=== PATIENT | male | born 1965 | race Caucasian/White ===

== ENCOUNTER 2016-05-02 07:48 | Emergency (ER) | payer OTHER ==
--- NOTE | 2016-05-02 09:27 | REP ---
CT abdomen and pelvis without contrast 05/02/2016 Indication: Right renal colic Comparison: CT abdomen pelvis 10/27/2015, renal ultrasound 12/02/2015 Findings: small amount of dependent atelectasis is present in lung bases bilaterally. There is a 9 mm calcified granuloma within the lingula, and a 2 mm calcified granuloma in the lateral basilar segment left lower lobe. Liver is unremarkable. There are multiple scattered calcified granulomata in the spleen and one small calcified granuloma in the posterior segment right lobe of liver. The pancreas, gallbladder, adrenal glands are normal. There is very minimal dilatation of the right ureter secondary to an obstructing 2.8 mm calculus the distal right ureter approximately 5 mm above right ureteral vesicle junction. There is minimal right lonnie ureteral stranding. Left kidney is without hydronephrosis. There are no Nephro calculi bilaterally. Stomach and small bowel are within normal limits. The terminal ileum is normal. Appendix is without inflammation. Abdominal aorta is of normal course and caliber. Bladder is contracted; prostate is not enlarged. There are a few scattered colonic diverticula. There is no free air or ascites. Impression: 1. Minimal right hydronephrosis and hydroureter secondary to a 2.8 mm minimally obstructing calculus within the distal right ureter, approximately 5 mm above ureterovesical junction. Minimal right periureteral stranding 2. Appendix without inflammation. 3. Old granulomatous disease Signed by Elisa Montiel MD 05/02/2016 09:19 A
--- NOTE | 2016-05-02 10:13 | EDDOCDS ---
Physician Documentation [facility] Name: Marlo Root Age: 51 yrs Sex: Male : 1965 Arrival Date: 05/02/2016 Time: 07:48 Bed 5 Private MD: Disposition: 05/02 09:30 Critical Care: Critical care not applicable. pc Disposition: 05/02/16 09:40 Discharged to Home/Self Care. Impression: Calculus of ureter - right, distal, 2.8mm. - Condition is Stable. - Discharge Instructions: Kidney Stones, Ureteral Colic. - Prescriptions for Percocet 5- 325 mg Oral Tablet - take 1 tablet by ORAL route every 6 hours As needed MDD: 4 tabs; 20 tablet. ZOFRAN ODT 4 mg - dissolve 1 tablet by ORAL route 4 times per day As needed do not chew, do not swallow whole; 10 tablet. - Medication Reconciliation, Local Pharmacy Hours form. - Follow up: Bogdan Palafox; When: Call to arrange an appointment; Reason: To establish care. - Problem is new. - Symptoms have improved. HPI: 09:02 This 51 yrs old Male presents to ER via Walkin/Carried/Asstd with complaints pc of Flank Pain. 09:02 The history is obtained from the patient. pc 09:30 The patient presents with right flank pain. The symptoms began suddenly at 05:30, and pc improved just prior to arrival. Symptoms have resolved. They lasted for. At its worst, the symptoms were a 10 out of 10. In the emergency department, the symptoms has resolved. The is primarily located posterior aspect of right lateral abdomen. It does not radiate. The pain was associated with nausea, diaphoresis. The patient has experienced similar episodes in the past, several times. The patient has not recently seen a physician. Historical: - Allergies: no known allergies; - Home Meds: 1. Hydrocodone-Acetaminophen Oral Unknown as needed (Last dose: 05/02/2016 06:00) 2. Tylenol 325 mg Oral tab 2 tabs as needed (Last dose: 04/30/2016) - PMHx: Kidney stones; - PSHx: none; - The history from nurses notes was reviewed: and I agree with what is documented. - Social history: Smoking status: Patient states former smoker of tobacco. No barriers to communication noted, The patient speaks fluent Chinese. - Family history: Not pertinent. - : The pt / caregiver states he / she is not on anticoagulants. Home medication list is obtained from the patient. - Hospitalizations: : No recent hospitalization is reported. - Exposure Risk Screening:: None identified. - Immunization history:: All immunizations up-to-date. - Social history:: the patient is a non-smoker, the patient drinks alcohol, socially. ROS: 09:30 All systems are negative except if listed. The constitutional, cardiovascular, pc respiratory and neurological components are also addressed in the HPI. Exam: 09:30 General Appearance: alert, no acute distress. pc 09:30 ENT: ear, nose and throat normal, pharynx normal. 09:30 Neck: The exam reveals no acute abnormalities. ROM is normal and painless. No nuchal rigidity is noted.. 09:30 Respiratory: no respiratory distress, normal breath sounds, chest non-tender. 09:30 Cardiovascular: regular pulse rate, regular heart rhythm, normal heart sounds, equal and full pulses bilaterally. 09:30 Abdomen: soft, non-tender, no organomegaly, normal bowel sounds. 09:30 Back: CVA tenderness is noted on the right. 09:30 Skin: skin color is normal, warm, dry. 09:30 Extremities: The extremities have a grossly normal appearance, are non-tender, without acute ROM abnormalities. 09:30 Neuro: oriented x 3, cranial nerves normal as tested, no motor deficits, no sensory deficits. 09:30 Psych: mood is normal. Vital Signs: 07:57 BP 122 / 68; Pulse 44; Resp 16; Temp 96.3(T); Pulse Ox 98% on R/A; Weight 69.4 kg / 153 dwg lbs; Height 5 ft. 9 in. (175.26 cm); Pain 10/10; 10:07 BP 108 / 64; Pulse 48; Resp 18; Temp 97.6(O); Pulse Ox 99% on R/A; Pain 0/10; ct3 07:57 Body Mass Index 22.59 (69.40 kg, 175.26 cm) dwg MDM: 08:50 CT ABD & PELVIS: No Contrast Ordered. EDMS 08:56 Financial registration complete. lg 09:30 Differential diagnosis: Pyelonephritis, Ureterolithiasis. Plan: CT. Data reviewed: old medical records, vital signs, nurses notes, all radiology studies and available results. Test interpretation: interpreted by Radiologist and personally reviewed, Abdomen/Pelvis CT; right distal ureteral stone, 2.8mm, with mild HU/HN. The patient has been re-examined and re-evaluated. The clinical presentation did not require any ED treatment or interventions. Disposition: The historical points, examination findings, and any diagnostic results supporting the provided diagnosis, were discussed with the patient or legal guardian. The need for outpatient follow up with the provider listed on their discharge instructions was discussed. They were encouraged to return to [facility], or the nearest ED, if symptoms worsen/persist, or for any other questions/concerns. 09:49 [facility] Payment Agreement was scanned into [employer] and attached to record. lg Signatures: Dispatcher [employer] EDMS Jah Jewell MD MD pc Greene, Daniel, RN RN Jaxson Torres, Ann Johnson lg RN RN mk4 The chart was reviewed and I authenticate all verbal orders and agree with the evaluation and treatment provided.Attachments: 09:49 [facility] Payment Agreement lg [email or web address]
--- NOTE | 2016-05-02 10:13 | EDDOCDS ---
Nurse's Notes [facility] Name: Marlo Root Age: 51 yrs Sex: Male : 1965 Arrival Date: 05/02/2016 Time: 07:48 Bed 5 Private MD: Diagnosis: Calculus of ureter-right, distal, 2.8mm Presentation: 05/02 07:54 Presenting complaint: Patient states: Right flank pain since 5am today. Vomited once, dwg history of kidney stones. Acute neurological deficits are not present. Mechanism of Injury: No Mechanism of Injury. Adult Sepsis Screening: The patient does not have new or worsening altered mentation. Patient's respiratory rate is less than 22. Systolic blood pressure is greater than 100. Patient has a qSOFA score of 0- Negative Sepsis Screen. Suicide/Homicide risk assessment- the patient denies having any suicidal and/or homicidal ideations and does not present with any other emotional, behavioral or mental health complaints. Status: Patient is not a vp client services or dependent. Transition of care: patient was not received from another setting of care. 07:54 Acuity: PIERCE Level 3 dwg 07:54 Method Of Arrival: Walkin/Carried/Asstd dwg Triage Assessment: 07:57 General: Appears in no apparent distress. Pain: Pain currently is 10 out of 10 on a dwg pain scale. HIV screening NA for this visit Offered previously. Historical: - Allergies: no known allergies; - Home Meds: 1. Hydrocodone-Acetaminophen Oral Unknown as needed (Last dose: 05/02/2016 06:00) 2. Tylenol 325 mg Oral tab 2 tabs as needed (Last dose: 04/30/2016) - PMHx: Kidney stones; - PSHx: none; - The history from nurses notes was reviewed: and I agree with what is documented. - Social history: Smoking status: Patient states former smoker of tobacco. No barriers to communication noted, The patient speaks fluent Malay. - Family history: Not pertinent. - : The pt / caregiver states he / she is not on anticoagulants. Home medication list is obtained from the patient. - Hospitalizations: : No recent hospitalization is reported. - Exposure Risk Screening:: None identified. - Immunization history:: All immunizations up-to-date. - Social history:: the patient is a non-smoker, the patient drinks alcohol, socially. Screenin:10 Screening information is obtained from the patient. Fall risk: No risks identified. mk4 Assistance ADL's: requires no assistance with activities of daily living. Abuse/DV Screen: The patient / caregiver reports he/she is: not in a situation that causes fear, pain or injury. Nutritional screening: No deficits noted. Advance Directives: Currently, there is no health care proxy. home support is adequate. Assessment: 08:10 Pain: Denies pain. Neurological: Level of Consciousness is awake, alert. Respiratory: mk4 Airway is patent Respiratory effort is even, unlabored, Respiratory pattern is regular. GI: Abdomen is flat, non- distended Bowel sounds present X 4 quads. Abd is soft and non tender X 4 quads. Musculoskeletal: No deficits noted. 08:50 General: Appears in no apparent distress, comfortable. mk4 08:53 Adult Sepsis Screening: The patient does not have new or worsening altered mentation. mk4 Patient's respiratory rate is less than 22. Systolic blood pressure is greater than 100. Patient has a qSOFA score of 0- Negative Sepsis Screen. 09:26 Reassessment: Patient denies pain at this time. Patient states feeling better. Patient mk4 states symptoms have improved. 10:10 Reassessment: Patient denies pain at this time. Patient states feeling better. General: mk4 Appears in no apparent distress, comfortable. Vital Signs: 07:57 BP 122 / 68; Pulse 44; Resp 16; Temp 96.3(T); Pulse Ox 98% on R/A; Weight 69.4 kg; g Height 5 ft. 9 in. (175.26 cm); Pain 10/10; 10:07 BP 108 / 64; Pulse 48; Resp 18; Temp 97.6(O); Pulse Ox 99% on R/A; Pain 0/10; ct3 07:57 Body Mass Index 22.59 (69.40 kg, 175.26 cm) [facility] Vitals: 07:57 Log In Time: May 02, 2016 at 07:47. [facility] ED Course: 07:49 Patient visited by Marcelina Jaquez. mm15 07:49 Patient moved to Waiting mm15 07:55 Triage Initiated [facility] 08:00 Patient moved to [facility] 08:44 Jah Jewell MD is Attending Physician. pc 08:49 Patient visited by Jah Jewell MD. pc 08:52 Inserted saline lock: 18 gauge in left antecubital area and blood collected. No mk4 procedures done that require assistance. 09:26 Patient visited by Ann Levine RN. mk4 09:35 CT ABD & PELVIS: No Contrast Returned. EDMS 09:40 Bogdan Palafox is Referral Physician. pc 09:49 [facility] Payment Agreement was scanned into [employer] and attached to record. lg 10:07 Patient visited by Nivia Quiroz PCA. ct3 10:10 The patient / caregiver is instructed regarding the plan of care and ED course. mk4 10:10 Discontinued IV lock bleeding controlled, pressure dressing applied. mk4 Order Results: Radiology Order: CT ABD & PELVIS: No Contrast Test: CT ABD & PELVIS: No Contrast REASON FOR EXAMINATION: Renal colic; CT abdomen and pelvis without contrast 05/02/2016; ; Indication: Right renal colic; ; Comparison: CT abdomen pelvis 10/27/2015, renal ultrasound 12/02/2015; ; Findings: small amount of dependent atelectasis is present in lung bases; bilaterally. There is a 9 mm calcified granuloma within the lingula, and a 2 mm; calcified granuloma in the lateral basilar segment left lower lobe.; ; Liver is unremarkable. There are multiple scattered calcified granulomata in the; spleen and one small calcified granuloma in the posterior segment right lobe of; liver. The pancreas, gallbladder, adrenal glands are normal. There is very; minimal dilatation of the right ureter secondary to an obstructing 2.8 mm; calculus the distal right ureter approximately 5 mm above right ureteral vesicle; junction. There is minimal right lonnie ureteral stranding. Left kidney is without; hydronephrosis. There are no Nephro calculi bilaterally. Stomach and small; bowel are within normal limits. The terminal ileum is normal. Appendix is; without inflammation. Abdominal aorta is of normal course and caliber.; ; Bladder is contracted; prostate is not enlarged. There are a few scattered; colonic diverticula. There is no free air or ascites.; ; Impression:; 1. Minimal right hydronephrosis and hydroureter secondary to a 2.8 mm minimally; obstructing calculus within the distal right ureter, approximately 5 mm above; ureterovesical junction. Minimal right periureteral stranding; 2. Appendix without inflammation.; 3. Old granulomatous disease; ; ; Signed by; Elisa Montiel MD 05/02/2016 09:19 A; Outcome: 09:40 Discharge ordered by Provider. pc 10:10 Discharge Assessment: Patient awake, alert and oriented x 3. No cognitive and/or mk4 functional deficits noted. Patient verbalized understanding of disposition instructions. Patient awake and alert. patient administered narcotics - no. The following High Risk Discharge criteria are identified: None. Discharged to home ambulatory. Condition: good Condition: stable. CT Study completed. Property sent home with patient. 10:12 Patient left the ED. mk4 Signatures: Dispatcher [employer] EDMS Jah Jewell MD MD pc Greene, Daniel, RN RN Jaxson Torres Reg Reg lg Taveras, Consuelo, PRODUCTION COOK PRODUCTION COOK ct3 Marcelina Jaquez mm15 Ann Levine, RN RN mk4 MTDD
--- NOTE | 2016-05-04 11:13 | EDDOCDS ---
Physician Documentation [facility] Name: Marlo Root Age: 51 yrs Sex: Male : 1965 Arrival Date: 05/02/2016 Time: 07:48 Bed 5 Private MD: Disposition: 05/02 09:30 Critical Care: Critical care not applicable. pc Disposition: 05/02/16 09:40 Discharged to Home/Self Care. Impression: Calculus of ureter - right, distal, 2.8mm. - Condition is Stable. - Discharge Instructions: Kidney Stones, Ureteral Colic. - Prescriptions for Percocet 5- 325 mg Oral Tablet - take 1 tablet by ORAL route every 6 hours As needed MDD: 4 tabs; 20 tablet. ZOFRAN ODT 4 mg - dissolve 1 tablet by ORAL route 4 times per day As needed do not chew, do not swallow whole; 10 tablet. - Medication Reconciliation, Local Pharmacy Hours form. - Follow up: Bogdan Palafox; When: Call to arrange an appointment; Reason: To establish care. - Problem is new. - Symptoms have improved. HPI: 09:02 This 51 yrs old Male presents to ER via Walkin/Carried/Asstd with complaints pc of Flank Pain. 09:02 The history is obtained from the patient. pc 09:30 The patient presents with right flank pain. The symptoms began suddenly at 05:30, and pc improved just prior to arrival. Symptoms have resolved. They lasted for. At its worst, the symptoms were a 10 out of 10. In the emergency department, the symptoms has resolved. The is primarily located posterior aspect of right lateral abdomen. It does not radiate. The pain was associated with nausea, diaphoresis. The patient has experienced similar episodes in the past, several times. The patient has not recently seen a physician. Historical: - Allergies: no known allergies; - Home Meds: 1. Hydrocodone-Acetaminophen Oral Unknown as needed (Last dose: 05/02/2016 06:00) 2. Tylenol 325 mg Oral tab 2 tabs as needed (Last dose: 04/30/2016) - PMHx: Kidney stones; - PSHx: none; - The history from nurses notes was reviewed: and I agree with what is documented. - Social history: Smoking status: Patient states former smoker of tobacco. No barriers to communication noted, The patient speaks fluent Nigerien. - Family history: Not pertinent. - : The pt / caregiver states he / she is not on anticoagulants. Home medication list is obtained from the patient. - Hospitalizations: : No recent hospitalization is reported. - Exposure Risk Screening:: None identified. - Immunization history:: All immunizations up-to-date. - Social history:: the patient is a non-smoker, the patient drinks alcohol, socially. ROS: 09:30 All systems are negative except if listed. The constitutional, cardiovascular, pc respiratory and neurological components are also addressed in the HPI. Exam: 09:30 General Appearance: alert, no acute distress. pc 09:30 ENT: ear, nose and throat normal, pharynx normal. 09:30 Neck: The exam reveals no acute abnormalities. ROM is normal and painless. No nuchal rigidity is noted.. 09:30 Respiratory: no respiratory distress, normal breath sounds, chest non-tender. 09:30 Cardiovascular: regular pulse rate, regular heart rhythm, normal heart sounds, equal and full pulses bilaterally. 09:30 Abdomen: soft, non-tender, no organomegaly, normal bowel sounds. 09:30 Back: CVA tenderness is noted on the right. 09:30 Skin: skin color is normal, warm, dry. 09:30 Extremities: The extremities have a grossly normal appearance, are non-tender, without acute ROM abnormalities. 09:30 Neuro: oriented x 3, cranial nerves normal as tested, no motor deficits, no sensory deficits. 09:30 Psych: mood is normal. Vital Signs: 07:57 BP 122 / 68; Pulse 44; Resp 16; Temp 96.3(T); Pulse Ox 98% on R/A; Weight 69.4 kg / 153 dwg lbs; Height 5 ft. 9 in. (175.26 cm); Pain 10/10; 10:07 BP 108 / 64; Pulse 48; Resp 18; Temp 97.6(O); Pulse Ox 99% on R/A; Pain 0/10; ct3 07:57 Body Mass Index 22.59 (69.40 kg, 175.26 cm) dwg MDM: 08:50 CT ABD & PELVIS: No Contrast Ordered. EDMS 08:56 Financial registration complete. lg 09:30 Differential diagnosis: Pyelonephritis, Ureterolithiasis. Plan: CT. Data reviewed: old medical records, vital signs, nurses notes, all radiology studies and available results. Test interpretation: interpreted by Radiologist and personally reviewed, Abdomen/Pelvis CT; right distal ureteral stone, 2.8mm, with mild HU/HN. The patient has been re-examined and re-evaluated. The clinical presentation did not require any ED treatment or interventions. Disposition: The historical points, examination findings, and any diagnostic results supporting the provided diagnosis, were discussed with the patient or legal guardian. The need for outpatient follow up with the provider listed on their discharge instructions was discussed. They were encouraged to return to [facility], or the nearest ED, if symptoms worsen/persist, or for any other questions/concerns. 09:49 [facility] Payment Agreement was scanned into [employer] and attached to record. lg Signatures: Dispatcher [employer] EDMS Jah Jewell MD MD pc Greene, Daniel, RN RN Jaxson Torres, Ann Johnson lg RN RN mk4 The chart was reviewed and I authenticate all verbal orders and agree with the evaluation and treatment provided.Attachments: 09:49 [facility] Payment Agreement lg Chart Complete MTDD
--- NOTE | 2016-05-04 11:13 | EDDOCDS ---
Physician Documentation [facility] Name: Marlo Root Age: 51 yrs Sex: Male : 1965 Arrival Date: 05/02/2016 Time: 07:48 Bed 5 Private MD: Disposition: 05/02 09:30 Critical Care: Critical care not applicable. pc Disposition: 05/02/16 09:40 Discharged to Home/Self Care. Impression: Calculus of ureter - right, distal, 2.8mm. - Condition is Stable. - Discharge Instructions: Kidney Stones, Ureteral Colic. - Prescriptions for Percocet 5- 325 mg Oral Tablet - take 1 tablet by ORAL route every 6 hours As needed MDD: 4 tabs; 20 tablet. ZOFRAN ODT 4 mg - dissolve 1 tablet by ORAL route 4 times per day As needed do not chew, do not swallow whole; 10 tablet. - Medication Reconciliation, Local Pharmacy Hours form. - Follow up: Bogdan Palafox; When: Call to arrange an appointment; Reason: To establish care. - Problem is new. - Symptoms have improved. HPI: 09:02 This 51 yrs old Male presents to ER via Walkin/Carried/Asstd with complaints pc of Flank Pain. 09:02 The history is obtained from the patient. pc 09:30 The patient presents with right flank pain. The symptoms began suddenly at 05:30, and pc improved just prior to arrival. Symptoms have resolved. They lasted for. At its worst, the symptoms were a 10 out of 10. In the emergency department, the symptoms has resolved. The is primarily located posterior aspect of right lateral abdomen. It does not radiate. The pain was associated with nausea, diaphoresis. The patient has experienced similar episodes in the past, several times. The patient has not recently seen a physician. Historical: - Allergies: no known allergies; - Home Meds: 1. Hydrocodone-Acetaminophen Oral Unknown as needed (Last dose: 05/02/2016 06:00) 2. Tylenol 325 mg Oral tab 2 tabs as needed (Last dose: 04/30/2016) - PMHx: Kidney stones; - PSHx: none; - The history from nurses notes was reviewed: and I agree with what is documented. - Social history: Smoking status: Patient states former smoker of tobacco. No barriers to communication noted, The patient speaks fluent Kyrgyz. - Family history: Not pertinent. - : The pt / caregiver states he / she is not on anticoagulants. Home medication list is obtained from the patient. - Hospitalizations: : No recent hospitalization is reported. - Exposure Risk Screening:: None identified. - Immunization history:: All immunizations up-to-date. - Social history:: the patient is a non-smoker, the patient drinks alcohol, socially. ROS: 09:30 All systems are negative except if listed. The constitutional, cardiovascular, pc respiratory and neurological components are also addressed in the HPI. Exam: 09:30 General Appearance: alert, no acute distress. pc 09:30 ENT: ear, nose and throat normal, pharynx normal. 09:30 Neck: The exam reveals no acute abnormalities. ROM is normal and painless. No nuchal rigidity is noted.. 09:30 Respiratory: no respiratory distress, normal breath sounds, chest non-tender. 09:30 Cardiovascular: regular pulse rate, regular heart rhythm, normal heart sounds, equal and full pulses bilaterally. 09:30 Abdomen: soft, non-tender, no organomegaly, normal bowel sounds. 09:30 Back: CVA tenderness is noted on the right. 09:30 Skin: skin color is normal, warm, dry. 09:30 Extremities: The extremities have a grossly normal appearance, are non-tender, without acute ROM abnormalities. 09:30 Neuro: oriented x 3, cranial nerves normal as tested, no motor deficits, no sensory deficits. 09:30 Psych: mood is normal. Vital Signs: 07:57 BP 122 / 68; Pulse 44; Resp 16; Temp 96.3(T); Pulse Ox 98% on R/A; Weight 69.4 kg / 153 dwg lbs; Height 5 ft. 9 in. (175.26 cm); Pain 10/10; 10:07 BP 108 / 64; Pulse 48; Resp 18; Temp 97.6(O); Pulse Ox 99% on R/A; Pain 0/10; ct3 07:57 Body Mass Index 22.59 (69.40 kg, 175.26 cm) dwg MDM: 08:50 CT ABD & PELVIS: No Contrast Ordered. EDMS 08:56 Financial registration complete. lg 09:30 Differential diagnosis: Pyelonephritis, Ureterolithiasis. Plan: CT. Data reviewed: old medical records, vital signs, nurses notes, all radiology studies and available results. Test interpretation: interpreted by Radiologist and personally reviewed, Abdomen/Pelvis CT; right distal ureteral stone, 2.8mm, with mild HU/HN. The patient has been re-examined and re-evaluated. The clinical presentation did not require any ED treatment or interventions. Disposition: The historical points, examination findings, and any diagnostic results supporting the provided diagnosis, were discussed with the patient or legal guardian. The need for outpatient follow up with the provider listed on their discharge instructions was discussed. They were encouraged to return to [facility], or the nearest ED, if symptoms worsen/persist, or for any other questions/concerns. 09:49 [facility] Payment Agreement was scanned into [employer] and attached to record. lg Signatures: Dispatcher [employer] EDMS Jah Jewell MD MD pc Greene, Daniel, RN RN Jaxson Torres, Ann Johnson lg RN RN mk4 The chart was reviewed and I authenticate all verbal orders and agree with the evaluation and treatment provided.Attachments: 09:49 [facility] Payment Agreement lg Chart Complete MTDD
--- NOTE | 2016-05-04 11:13 | EDDOCDS ---
Nurse's Notes [facility] Name: Marlo Root Age: 51 yrs Sex: Male : 1965 Arrival Date: 05/02/2016 Time: 07:48 Bed 5 Private MD: Diagnosis: Calculus of ureter-right, distal, 2.8mm Presentation: 05/02 07:54 Presenting complaint: Patient states: Right flank pain since 5am today. Vomited once, dwg history of kidney stones. Acute neurological deficits are not present. Mechanism of Injury: No Mechanism of Injury. Adult Sepsis Screening: The patient does not have new or worsening altered mentation. Patient's respiratory rate is less than 22. Systolic blood pressure is greater than 100. Patient has a qSOFA score of 0- Negative Sepsis Screen. Suicide/Homicide risk assessment- the patient denies having any suicidal and/or homicidal ideations and does not present with any other emotional, behavioral or mental health complaints. Status: Patient is not a financial service representative or dependent. Transition of care: patient was not received from another setting of care. 07:54 Acuity: PIERCE Level 3 dwg 07:54 Method Of Arrival: Walkin/Carried/Asstd dwg Triage Assessment: 07:57 General: Appears in no apparent distress. Pain: Pain currently is 10 out of 10 on a dwg pain scale. HIV screening NA for this visit Offered previously. Historical: - Allergies: no known allergies; - Home Meds: 1. Hydrocodone-Acetaminophen Oral Unknown as needed (Last dose: 05/02/2016 06:00) 2. Tylenol 325 mg Oral tab 2 tabs as needed (Last dose: 04/30/2016) - PMHx: Kidney stones; - PSHx: none; - The history from nurses notes was reviewed: and I agree with what is documented. - Social history: Smoking status: Patient states former smoker of tobacco. No barriers to communication noted, The patient speaks fluent Wolof. - Family history: Not pertinent. - : The pt / caregiver states he / she is not on anticoagulants. Home medication list is obtained from the patient. - Hospitalizations: : No recent hospitalization is reported. - Exposure Risk Screening:: None identified. - Immunization history:: All immunizations up-to-date. - Social history:: the patient is a non-smoker, the patient drinks alcohol, socially. Screenin:10 Screening information is obtained from the patient. Fall risk: No risks identified. mk4 Assistance ADL's: requires no assistance with activities of daily living. Abuse/DV Screen: The patient / caregiver reports he/she is: not in a situation that causes fear, pain or injury. Nutritional screening: No deficits noted. Advance Directives: Currently, there is no health care proxy. home support is adequate. Assessment: 08:10 Pain: Denies pain. Neurological: Level of Consciousness is awake, alert. Respiratory: mk4 Airway is patent Respiratory effort is even, unlabored, Respiratory pattern is regular. GI: Abdomen is flat, non- distended Bowel sounds present X 4 quads. Abd is soft and non tender X 4 quads. Musculoskeletal: No deficits noted. 08:50 General: Appears in no apparent distress, comfortable. mk4 08:53 Adult Sepsis Screening: The patient does not have new or worsening altered mentation. mk4 Patient's respiratory rate is less than 22. Systolic blood pressure is greater than 100. Patient has a qSOFA score of 0- Negative Sepsis Screen. 09:26 Reassessment: Patient denies pain at this time. Patient states feeling better. Patient mk4 states symptoms have improved. 10:10 Reassessment: Patient denies pain at this time. Patient states feeling better. General: mk4 Appears in no apparent distress, comfortable. Vital Signs: 07:57 BP 122 / 68; Pulse 44; Resp 16; Temp 96.3(T); Pulse Ox 98% on R/A; Weight 69.4 kg; g Height 5 ft. 9 in. (175.26 cm); Pain 10/10; 10:07 BP 108 / 64; Pulse 48; Resp 18; Temp 97.6(O); Pulse Ox 99% on R/A; Pain 0/10; ct3 07:57 Body Mass Index 22.59 (69.40 kg, 175.26 cm) [facility] Vitals: 07:57 Log In Time: May 02, 2016 at 07:47. [facility] ED Course: 07:49 Patient visited by Marcelina Jaquez. mm15 07:49 Patient moved to Waiting mm15 07:55 Triage Initiated [facility] 08:00 Patient moved to [facility] 08:44 Jah Jewell MD is Attending Physician. pc 08:49 Patient visited by Jah Jewell MD. pc 08:52 Inserted saline lock: 18 gauge in left antecubital area and blood collected. No mk4 procedures done that require assistance. 09:26 Patient visited by Ann Levine RN. mk4 09:35 CT ABD & PELVIS: No Contrast Returned. EDMS 09:40 Bogdan Palafox is Referral Physician. pc 09:49 [facility] Payment Agreement was scanned into [employer] and attached to record. lg 10:07 Patient visited by Nivia Quiroz PCA. ct3 10:10 The patient / caregiver is instructed regarding the plan of care and ED course. mk4 10:10 Discontinued IV lock bleeding controlled, pressure dressing applied. mk4 Order Results: Radiology Order: CT ABD & PELVIS: No Contrast Test: CT ABD & PELVIS: No Contrast REASON FOR EXAMINATION: Renal colic; CT abdomen and pelvis without contrast 05/02/2016; ; Indication: Right renal colic; ; Comparison: CT abdomen pelvis 10/27/2015, renal ultrasound 12/02/2015; ; Findings: small amount of dependent atelectasis is present in lung bases; bilaterally. There is a 9 mm calcified granuloma within the lingula, and a 2 mm; calcified granuloma in the lateral basilar segment left lower lobe.; ; Liver is unremarkable. There are multiple scattered calcified granulomata in the; spleen and one small calcified granuloma in the posterior segment right lobe of; liver. The pancreas, gallbladder, adrenal glands are normal. There is very; minimal dilatation of the right ureter secondary to an obstructing 2.8 mm; calculus the distal right ureter approximately 5 mm above right ureteral vesicle; junction. There is minimal right lonnie ureteral stranding. Left kidney is without; hydronephrosis. There are no Nephro calculi bilaterally. Stomach and small; bowel are within normal limits. The terminal ileum is normal. Appendix is; without inflammation. Abdominal aorta is of normal course and caliber.; ; Bladder is contracted; prostate is not enlarged. There are a few scattered; colonic diverticula. There is no free air or ascites.; ; Impression:; 1. Minimal right hydronephrosis and hydroureter secondary to a 2.8 mm minimally; obstructing calculus within the distal right ureter, approximately 5 mm above; ureterovesical junction. Minimal right periureteral stranding; 2. Appendix without inflammation.; 3. Old granulomatous disease; ; ; Signed by; Elisa Montiel MD 05/02/2016 09:19 A; Outcome: 09:40 Discharge ordered by Provider. pc 10:10 Discharge Assessment: Patient awake, alert and oriented x 3. No cognitive and/or mk4 functional deficits noted. Patient verbalized understanding of disposition instructions. Patient awake and alert. patient administered narcotics - no. The following High Risk Discharge criteria are identified: None. Discharged to home ambulatory. Condition: good Condition: stable. CT Study completed. Property sent home with patient. 10:12 Patient left the ED. mk4 Signatures: Dispatcher [employer] EDMS Jah Jewell MD MD pc Greene, Daniel, RN RN Jaxson Torres Reg Reg lg Taveras, Consuelo, KNIFEMAN KNIFEMAN ct3 Marcelina Jaquez mm15 Ann Levine, RN RN mk4 Chart Complete MTDD
== END 2016-05-02 10:12 | disposition home or self-care (01) ==
LOC: M ED 07:48
DX: N20.1 Calculus of ureter (principal); Z87.442 Personal history of urinary calculi; Z87.891 Personal history of nicotine dependence